=== PATIENT | female | born 2000 | race Caucasian/White ===

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

== ENCOUNTER 2024-05-02 19:33 | Inpatient (IN) | payer SELFPAY ==
--- NOTE | 2024-05-02 19:41 | ED_ITS ---
<Statement entered by Rui Cole MD - 05/02/24 23:03> I was consulted by the HENRI, and we discussed the complexity of the problems being addressed. I approved the treatment and management plan for this patient's care in the emergency department, thus performing a substantive portion of the medical decision making. Rui Cole MD, ELIZABET, FACEP Discharge Plan Disposition Patient Disposition: Admitted Condition: Fair Clinical Impressions Clinical Impression: Transaminitis Acute pancreatitis Qualifiers: Pancreatitis type: other Acute pancreatitis complication: unspecified Qualified Code(s): K85.80 - Other acute pancreatitis without necrosis or infection Discharge ED Provider: Rui Cole General Adult HPI <RAJENDRA Dukes - Last Filed: 05/02/24 22:32> General Chief complaint: Abdominal Pain Stated complaint: abd pain, vomiting Time Seen by Provider: 05/02/24 19:40 History of Present Illness HPI narrative: Patient presents for evaluation of epigastric abdominal pain. Patient states that she was awoken from sleep with epigastric abdominal pain. This is not her first episode of this and has been happening for quite some time. She denies shortness of breath fever chills hemoptysis hematochezia melena nausea vomiting diarrhea. Patient states that she has not had a bowel movement in some time . She denies alcohol or illicit or street drug use. Patient still has her gallbladder. Related Data Allergies Allergy/AdvReac Type Severity Reaction Status Date / Time Penicillins [PENICILLINS] Allergy Unknown I-HIVES Verified 11/23/17 15:39 PFSH <RAJENDRA Dukes - Last Filed: 05/02/24 22:32> [facility] Disclaimer: The information contained in this section may have been updated after the patient was seen, as this information can be updated by other users. Social History (Updated 05/02/24 @ 22:32 by RAJENDRA Dukes) Smoking Status: Unknown if ever smoked alcohol intake: never current occupational status: employed Travel in the last 8 weeks: None <RAJENDRA Dukes - Last Filed: 05/02/24 22:32> ROS Obtained: Yes Systems reviewed as appropriate & no additional complaints except as documented Physical Exam <RAJENDRA Dukes - Last Filed: 05/02/24 22:32> General General appearance: alert and in no apparent distress Respiratory Respiratory exam: Present normal lung sounds bilaterally Cardiovascular Cardiovascular exam: Present regular rate and normal rhythm Abdominal Exam Abdominal exam: Present soft, tenderness (Tender to palpation in the epigastrium without rebound or guarding rigidity.) and normal bowel sounds; Absent guarding, rebound or rigidity Back Exam Back exam: Present normal inspection and full ROM; Absent tenderness Neurological Exam Neurological exam: Present alert and oriented X3 Medical Decision Making <RAJENDRA Dukes - Last Filed: 05/02/24 22:32> Medical Records Medical records reviewed: Yes I reviewed the patient's medical records. Telly Inquiry Pt receiving controlled substance: No Vital Signs: 05/02/24 19:46 05/02/24 20:08 05/02/24 21:01 Temperature 98.1 F Temperature Source Oral Pulse Rate 46 L 56 L Pulse Rate [Right Brachial] 80 Respiratory Rate 16 Blood Pressure 143/99 H 171/104 H Blood Pressure [Right Arm] 142/71 H Blood Pressure Mean 120 126 Blood Pressure Mean [Right Arm] 94 Blood Pressure Source [Right Arm] Automatic Cuff 02 Sat by Pulse Oximetry 98 98 99 Oxygen Delivery Method Room Air 05/02/24 21:31 Temperature Temperature Source Pulse Rate 51 L Pulse Rate [Right Brachial] Respiratory Rate Blood Pressure 142/92 H Blood Pressure [Right Arm] Blood Pressure Mean 108 Blood Pressure Mean [Right Arm] Blood Pressure Source [Right Arm] 02 Sat by Pulse Oximetry 99 Oxygen Delivery Method Lab Data Lab results reviewed: Yes I reviewed the patient's lab results. Lab Results 05/02/24 19:40: Urine Color Yellow, Urine Appearance Clear, Urine pH 6.0, Ur Specific [place] 1.010, Urine Protein 1+, Urine Glucose (UA) Trace, Urine Ketones Negative, Urine Blood Negative, Urine Nitrate Negative, Urine Bilirubin 1+ A, Urine Urobilinogen >=8.0, Ur Leukocyte Esterase 2+ A, Urine RBC None, Urine WBC 3-5, Ur Squamous Epith Cells 10-20, Urine Bacteria 2+ 05/02/24 20:05: WBC 10.7, RBC 5.22, Hgb 14.7, Hct 44.5, MCV 85.2, MCH 28.2, MCHC 33.0, RDW 14.1, Plt Count 259, MPV 8.6, Neut % (Auto) 85.1 H, Lymph % (Auto) 8.4 L, [place] % (Auto) 4.3, Eos % (Auto) 1.6, Baso % (Auto) 0.5, Neut # (Auto) 9.1 H, Lymph # (Auto) 0.9, [place] # (Auto) 0.5, Eos # (Auto) 0.2, Baso # (Auto) 0.1, Total Counted 100, Neutrophils % (Manual) 84 H, Lymphocytes % (Manual) 10, Monocytes % (Manual) 3, Eosinophils % (Manual) 3, Platelet Estimate Normal, RBC Morphology Normal, Sodium 142, Potassium 4.4, Chloride 102, Carbon Dioxide 31 H, Anion Gap 13.4, BUN 11, Creatinine 0.80, Estimated Creat Clear 197, Estimated GFR 90, Est GFR ( Amer) 109, Glucose 109 H, Lactate 1.2, Calcium 10.2, Magnesium 2.1, Total Bilirubin 1.1, AST 375 H*, ALT 217 H, Alkaline Phosphatase 108, Troponin I < 0.01, Total Protein 9.0 H, Albumin 4.5, Globulin 4.5 H, A lbumin/Globulin Ratio 1.0 L, Triglycerides 118, Cholesterol 225 H, LDL Cholesterol Direct 131.61 H, VLDL Cholesterol 24, HDL Cholesterol 52, C holesterol/HDL Ratio 4.3 H, Lipase 46681 H, Serum HCG, Qual Negative 05/02/24 20:05 05/02/24 20:05 Orders (Tests/Meds): ED MEDICATIONS Generic Name Dose Route Start Last Admin Trade Name Freq PRN Reason Stop Dose Admin Acetaminophen 650 mg 05/02/24 22:24 Acetaminophen 325mg Tab PO 06/01/24 22:23 Q4HP PRN Fever or Mild Pain (1-3) Enoxaparin Sodium 40 mg 05/03/24 09:00 Enoxaparin 40mg/0.4ml Syringe SQ 06/02/24 08:59 DAILY IVONNE Lactated Ringer's 1,000 mls @ 125 mls/hr 05/02/24 22:30 Lactated Ringer's 1000 Ml Bag IV 06/01/24 22:29 .Q8H IVONNE Morphine Sulfate 2 mg 05/02/24 22:24 Morphine 2mg/Ml Syringe IV 06/01/24 22:23 Q2HP PRN Severe Pain (7-10) Nicotine 21 mg 05/02/24 22:24 Nicotine 21mg/24hr Patch TD 06/01/24 22:23 DAILYP PRN Nicotine Cravings Ondansetron HCl 4 mg 05/02/24 22:24 Ondansetron 4mg/2ml Vial IV 06/01/24 22:23 Q8HP PRN Nausea Pantoprazole Sodium 40 mg 05/03/24 21:00 Pantoprazole 40mg Vial IV 06/02/24 20:59 HS IVONNE Sodium Chloride 10 ml 05/02/24 20:55 05/02/24 20:56 Sodium Chloride 0.9% 10ml Syr (Rad Only) IV 06/01/24 20:54 10 ml NEEDED PRN Administration Maintain IV Site Discontinued Medications Generic Name Dose Route Start Last Admin Trade Name Freq PRN Reason Stop Dose Admin Acetaminophen 1,000 mg 05/02/24 20:02 05/02/24 20:27 Acetaminophen 1,000mg/100ml Vial IV 05/02/24 20:03 1,000 mg ONCE ONE Administration Belladonna Alkaloids 60 ml 05/02/24 20:02 05/02/24 20:28 Belladonna Alkaloids 60 Ml Ml PO 05/02/24 20:03 60 ml ONCE ONE Administration Lactated Ringer's 1,000 mls @ 999 mls/hr 05/02/24 20:02 05/02/24 20:27 Lactated Ringer's 1000 Ml Bag IV 05/02/24 21:02 999 mls/hr .Q1H1M ONE Administration Iopamidol 75 ml 05/02/24 20:55 05/02/24 20:56 Iopamidol-370 (76%);100ml Bottle IV 05/02/24 20:56 75 ml ONCE ONE Administration Ketorolac Tromethamine 15 mg 05/02/24 20:02 05/02/24 20:58 Ketorolac 30mg/Ml Vial IV 05/02/24 20:03 15 mg ONCE ONE Administration Ondansetron HCl 4 mg 05/02/24 20:02 05/02/24 20:27 Ondansetron 4mg/2ml Vial IV 05/02/24 20:03 4 mg ONCE ONE Administration ORDERS Category Date Time Status CT abdomen pelvis w con Stat Cat Scan 05/02/24 20:02 Completed Chest XR -- portable [XR chest portable] Stat Exams 05/02/24 20:02 Completed POCUS Point of Care (ER Only) Stat Exams 05/02/24 20:49 Taken US pancreas Stat Exams 05/02/24 22:24 Ordered CBC w/Auto Diff [Complete Blood Count Auto Diff] Stat Lab 05/02/24 20:05 Completed CMP [Comprehensive Metabolic Panel] Stat Lab 05/02/24 20:05 Completed Complete Blood Count Auto Diff AMLAB Lab 05/03/24 06:00 Ordered Comprehensive Metabolic Panel AMLAB Lab 05/03/24 06:00 Ordered HCG Qualitative, Serum Stat Lab 05/02/24 20:05 Completed Hepatitis Panel Routine Lab 05/02/24 21:07 Received Lactic Acid Stat Lab 05/02/24 20:05 Completed Lipase Stat Lab 05/02/24 20:05 Completed Lipid Panel Stat Lab 05/02/24 20:05 Completed Magnesium AMLAB Lab 05/03/24 06:00 Ordered Magnesium Stat Lab 05/02/24 20:05 Completed Trop I [Troponin I] Stat Lab 05/02/24 20:05 Completed Troponin I Q3H Lab 05/02/24 23:15 Ordered Troponin I Q3H Lab 05/03/24 02:15 Ordered UA [Urinalysis and Microscopic] Stat Lab 05/02/24 19:40 Completed Urine Culture Stat Micro 05/02/24 19:40 Received Medical Decision Narrative: In summary patient is a 21-year-old female who presents to the emergency department for evaluation of gastric abdominal pain. Patient is hemodynamically stable upon arrival, afebrile. Physical exam is remarkable for epigastric abdominal pain to palpation without rebound guarding or rigidity. Bowel sounds are normal active.. Differential diagnosis includes GERD versus ulcer disease versus esophagitis versus cholecystitis versus pancreatitis versus bowel obstruction versus ACS etc. Initial workup will be conducted with hematologic labs urinalysis CT scan abdomen pelvis with contrast. Initial interventions include crystalloid bolus Toradol Decadron acetaminophen GI cocktail. Initial workup reviewed by me shows her hematologic labs are significant for normal white count with an absolute neutrophil count of 9.1, and AST of 375 and ALT of 217 and alk phos of 108 and bilirubin of 1.1 and negative troponin urinalysis positive for 3-5 white cells 10-20 squamous epithelial cells and 2+ bacteria indicating contamination and my informal interpretation of her CT scan abdomen pelvis shows acute pancreatitis. Upon repeat evaluation did have some improvement in her symptoms after initial intervention but not the GI cocktail.. Given this I had interactive discussion with hospital medicine who plans to admit for further evaluation and care <Rui Cole MD - Last Filed: 05/02/24 23:05> Vital Signs: 05/02/24 19:46 05/02/24 20:08 05/02/24 21:01 Temperature 98.1 F Temperature Source Oral Pulse Rate 46 L 56 L Pulse Rate [Right Brachial] 80 Respiratory Rate 16 Blood Pressure 143/99 H 171/104 H Blood Pressure [Right Arm] 142/71 H Blood Pressure Mean 120 126 Blood Pressure Mean [Right Arm] 94 Blood Pressure Source [Right Arm] Automatic Cuff 02 Sat by Pulse Oximetry 98 98 99 Oxygen Delivery Method Room Air 05/02/24 21:31 Temperature Temperature Source Pulse Rate 51 L Pulse Rate [Right Brachial] Respiratory Rate Blood Pressure 142/92 H Blood Pressure [Right Arm] Blood Pressure Mean 108 Blood Pressure Mean [Right Arm] Blood Pressure Source [Right Arm] 02 Sat by Pulse Oximetry 99 Oxygen Delivery Method Lab Data Lab results reviewed: Yes I reviewed the patient's lab results. Lab Results 05/02/24 19:40: Urine Color Yellow, Urine Appearance Clear, Urine pH 6.0, Ur Specific [place] 1.010, Urine Protein 1+, Urine Glucose (UA) Trace, Urine Ketones Negative, Urine Blood Negative, Urine Nitrate Negative, Urine Bilirubin 1+ A, Urine Urobilinogen >=8.0, Ur Leukocyte Esterase 2+ A, Urine RBC None, Urine WBC 3-5, Ur Squamous Epith Cells 10-20, Urine Bacteria 2+ 05/02/24 20:05: WBC 10.7, RBC 5.22, Hgb 14.7, Hct 44.5, MCV 85.2, MCH 28.2, MCHC 33.0, RDW 14.1, Plt Count 259, MPV 8.6, Neut % (Auto) 85.1 H, Lymph % (Auto) 8.4 L, [place] % (Auto) 4.3, Eos % (Auto) 1.6, Baso % (Auto) 0.5, Neut # (Auto) 9.1 H, Lymph # (Auto) 0.9, [place] # (Auto) 0.5, Eos # (Auto) 0.2, Baso # (Auto) 0.1, Total Counted 100, Neutrophils % (Manual) 84 H, Lymphocytes % (Manual) 10, Monocytes % (Manual) 3, Eosinophils % (Manual) 3, Platelet Estimate Normal, RBC Morphology Normal, Sodium 142, Potassium 4.4, Chloride 102, Carbon Dioxide 31 H, Anion Gap 13.4, BUN 11, Creatinine 0.80, Estimated Creat Clear 197, Estimated GFR 90, Est GFR ( Amer) 109, Glucose 109 H, Lactate 1.2, Calcium 10.2, Magnesium 2.1, Total Bilirubin 1.1, AST 375 H*, ALT 217 H, Alkaline Phosphatase 108, Troponin I < 0.01, Total Protein 9.0 H, Albumin 4.5, Globulin 4.5 H, A lbumin/Globulin Ratio 1.0 L, Triglycerides 118, Cholesterol 225 H, LDL Cholesterol Direct 131.61 H, VLDL Cholesterol 24, HDL Cholesterol 52, C holesterol/HDL Ratio 4.3 H, Lipase 83035 H, Serum HCG, Qual Negative Orders (Tests/Meds): ED MEDICATIONS Generic Name Dose Route Start Last Admin Trade Name Freq PRN Reason Stop Dose Admin Acetaminophen 650 mg 05/02/24 22:24 Acetaminophen 325mg Tab PO 06/01/24 22:23 Q4HP PRN Fever or Mild Pain (1-3) Enoxaparin Sodium 40 mg 05/03/24 09:00 Enoxaparin 40mg/0.4ml Syringe SQ 06/02/24 08:59 DAILY IVONNE Lactated Ringer's 1,000 mls @ 125 mls/hr 05/02/24 22:30 Lactated Ringer's 1000 Ml Bag IV 06/01/24 22:29 .Q8H IVONNE Morphine Sulfate 2 mg 05/02/24 22:24 Morphine 2mg/Ml Syringe IV 06/01/24 22:23 Q2HP PRN Severe Pain (7-10) Nicotine 21 mg 05/02/24 22:24 Nicotine 21mg/24hr Patch TD 06/01/24 22:23 DAILYP PRN Nicotine Cravings Ondansetron HCl 4 mg 05/02/24 22:24 Ondansetron 4mg/2ml Vial IV 06/01/24 22:23 Q8HP PRN Nausea Pantoprazole Sodium 40 mg 05/03/24 21:00 Pantoprazole 40mg Vial IV 06/02/24 20:59 HS IVONNE Sodium Chloride 10 ml 05/02/24 20:55 05/02/24 20:56 Sodium Chloride 0.9% 10ml Syr (Rad Only) IV 06/01/24 20:54 10 ml NEEDED PRN Administration Maintain IV Site Discontinued Medications Generic Name Dose Route Start Last Admin Trade Name Freq PRN Reason Stop Dose Admin Acetaminophen 1,000 mg 05/02/24 20:02 05/02/24 20:27 Acetaminophen 1,000mg/100ml Vial IV 05/02/24 20:03 1,000 mg ONCE ONE Administration Belladonna Alkaloids 60 ml 05/02/24 20:02 05/02/24 20:28 Belladonna Alkaloids 60 Ml Ml PO 05/02/24 20:03 60 ml ONCE ONE Administration Lactated Ringer's 1,000 mls @ 999 mls/hr 05/02/24 20:02 05/02/24 20:27 Lactated Ringer's 1000 Ml Bag IV 05/02/24 21:02 999 mls/hr .Q1H1M ONE Administration Iopamidol 75 ml 05/02/24 20:55 05/02/24 20:56 Iopamidol-370 (76%);100ml Bottle IV 05/02/24 20:56 75 ml ONCE ONE Administration Ketorolac Tromethamine 15 mg 05/02/24 20:02 05/02/24 20:58 Ketorolac 30mg/Ml Vial IV 05/02/24 20:03 15 mg ONCE ONE Administration Ondansetron HCl 4 mg 05/02/24 20:02 05/02/24 20:27 Ondansetron 4mg/2ml Vial IV 05/02/24 20:03 4 mg ONCE ONE Administration ORDERS Category Date Time Status CT abdomen pelvis w con Stat Cat Scan 05/02/24 20:02 Completed Chest XR -- portable [XR chest portable] Stat Exams 05/02/24 20:02 Completed POCUS Point of Care (ER Only) Stat Exams 05/02/24 20:49 Taken US pancreas Stat Exams 05/02/24 22:24 Ordered CBC w/Auto Diff [Complete Blood Count Auto Diff] Stat Lab 05/02/24 20:05 Completed CMP [Comprehensive Metabolic Panel] Stat Lab 05/02/24 20:05 Completed Complete Blood Count Auto Diff AMLAB Lab 05/03/24 06:00 Ordered Comprehensive Metabolic Panel AMLAB Lab 05/03/24 06:00 Ordered HCG Qualitative, Serum Stat Lab 05/02/24 20:05 Completed Hepatitis Panel Routine Lab 05/02/24 21:07 Received Lactic Acid Stat Lab 05/02/24 20:05 Completed Lipase Stat Lab 05/02/24 20:05 Completed Lipid Panel Stat Lab 05/02/24 20:05 Completed Magnesium AMLAB Lab 05/03/24 06:00 Ordered Magnesium Stat Lab 05/02/24 20:05 Completed Trop I [Troponin I] Stat Lab 05/02/24 20:05 Completed Troponin I Q3H Lab 05/02/24 23:15 Ordered Troponin I Q3H Lab 05/03/24 02:15 Ordered UA [Urinalysis and Microscopic] Stat Lab 05/02/24 19:40 Completed Urine Culture Stat Micro 05/02/24 19:40 Received Procedures <Rui Cole MD - Last Filed: 05/02/24 23:05> Miscellaneous Procedure Procedure Performed: Limited RUQ ultrasound Indication: Abdominal pain abnormal transaminases Identified structures: -Gallbladder -Gallbladder wall -Common bile duct -Liver Findings: Normal gallbladder normal anterior gallbladder wall thickness no pericholecystic fluid negative sonographic Ceron's no stones or sludge Common bile duct within normal limits Impression: Normal gallbladder and common bile duct Images were saved to permanent archive The study was technically adequate CPT 31994-36 This study was performed by me, and I personally interpreted all images/videos. Based on my clinical judgement, these images were adequate and did not necessitate further imaging. Critical Care <RAJENDRA Dukes - Last Filed: 05/02/24 22:32> Critical Care Time Critical Care Time: No
[2024-05-02 19:46] VITALS: BP 142/71; PULSE 80; RESP 16; TEMP 36.7; O2SAT 98; BMI 37.8
--- NOTE | 2024-05-02 20:02 | XR_ITS ---
PROCEDURE INFORMATION: Exam: XR Chest Exam date and time: 05/02/2024 8:34 PM Age: 23 years old Clinical indication: Other: Epigastric pain; Additional info: Epigastric abdominal pain TECHNIQUE: Imaging protocol: Radiologic exam of the chest. Views: 1 view. COMPARISON: No relevant prior studies available. FINDINGS: Lungs: Unremarkable. No consolidation. Pleural spaces: Unremarkable. No pleural effusion. No pneumothorax. Heart/Mediastinum: Unremarkable. No cardiomegaly. Bones/joints: Unremarkable. IMPRESSION: No acute findings.
--- NOTE | 2024-05-02 20:02 | CT_ITS ---
PROCEDURE INFORMATION: Exam: CT Abdomen And Pelvis With Contrast Exam date and time: 05/02/2024 8:44 PM Age: 23 years old Clinical indication: Abdominal pain; Epigastric; Additional info: Epigastric abdominal pain TECHNIQUE: Imaging protocol: Computed tomography of the abdomen and pelvis with contrast. Radiation optimization: All CT scans at this facility use at least one of these dose optimization techniques: automated exposure control; mA and/or kV adjustment per patient size (includes targeted exams where dose is matched to clinical indication); or iterative reconstruction. Contrast material: ISOVUE; Contrast volume: 75 ml; Contrast route: IV; COMPARISON: CR XR CHEST PORTABLE 05/02/2024 8:34 PM FINDINGS: Lungs: Calcified granuloma sub cm within the left lung. Liver: Mild diffuse hepatic steatosis is identified. Gallbladder and biliary ducts: The gallbladder is normal. There is no evidence of biliary ductal dilation. Pancreas: There is peripancreatic inflammatory changes involving the head, neck, uncinate and body of the pancreas consistent with acute pancreatitis. Spleen: The spleen is normal. Adrenal glands: The adrenal glands appear within normal limits. Kidneys and ureters: The kidneys are normal. Stomach and bowel: The stomach appears within normal limits. No wall thickening or inflammatory change. Appendix: No evidence of appendicitis. Intraperitoneal space: No free air. Vasculature: Unremarkable. No abdominal aortic aneurysm. Lymph nodes: Unremarkable. No enlarged lymph nodes. Urinary bladder: The bladder appears within normal limits. No wall thickening. Reproductive: The uterus and adnexal structures appear normal. Bones/joints: Unremarkable. No acute fracture. Soft tissues: The visualize subcutaneous soft tissues and abdominal wall and flank wall appear unremarkable. IMPRESSION: Changes of acute Pancreatitis without evidence for pancreatic necrosis.
[2024-05-02 20:08] VITALS: BP 143/99; PULSE 46; O2SAT 98
[2024-05-02 20:09] LABS: Microscopic, Urine URINE MICROSCOPIC (MICROSCOPIC)
[2024-05-02 20:19] LABS: Basophils # 0.1 K/mm3 (0-0.2); Basophils % 0.5 % (0.1-2.0); Eosinophils # 0.2 K/mm3 (0.0-0.4); Eosinophils % 1.6 % (0.1-12.0); Hematocrit 44.5 % (37.0-47.0); Hemoglobin 14.7 g/dL (12.2-16.2); Lymphocytes # 0.9 K/mm3 (0.7-4.5); Lymphocytes % 8.4 % (10-50); Mean Corpuscular Hemoglobin 28.2 pg (27.0-31.2); Mean Corpuscular Volume 85.2 fl (81-99); Mean Platelet Volume 8.6 fl (7.4-10.4); Monocytes # 0.5 K/mm3 (0.1-1.0); Monocytes % 4.3 % (1.7-9.3); Neutrophils # 9.1 K/mm3 (1.8-7.8); Neutrophils % 85.1 % (37.0-80.0); Platelet Count 259 K/mm3 (142-424); Red Blood Count 5.22 M/mm3 (4.20-5.40); Red Cell Distribution Width 14.1 % (11.5-17.5); White Blood Count 10.7 K/mm3 (4.8-10.8)
[2024-05-02 20:22] LABS: Appearance,Urine CLEAR (Clear); Blood, Urine Negative (Negative); Color,Urine YELLOW (Yellow); Glucose,Urine (UA) TRACE (Negative); Ketones,Urine Negative (Negative); Leukocyte Esterase,Urine 2+ (Negative); Nitrate,Urine Negative (Negative); Protein,Urine 1+ (Negative); Urobilinogen,Urine >=8.0 EU/dl (0.2)
[2024-05-02 20:22] LABS: MANUAL DIFFERENTIAL MANUAL DIFFERENTIAL (MANUAL DIFF)
[2024-05-02 20:27] LABS: Chloride 102 mmol/L (98-107)
[2024-05-02] MEDS: ACETAMINOPHEN 1,000MG/100ML VIAL 1000 MG IV (20:27)
[2024-05-02] MEDS: ONDANSETRON 4MG/2ML VIAL 4 MG IV (20:27)
[2024-05-02] MEDS: LACTATED RINGERS 1000ML 1,000 ML 999 ML IV (20:27)
[2024-05-02 20:28] LABS: Bilirubin,Urine 1+ (Negative)
[2024-05-02 20:28] LABS: Potassium 4.4 mmoL/L (3.5-5.1); Sodium 142 mmol/L (136-145)
[2024-05-02] MEDS: BELLADONNA ALKALOIDS 60 ML ML PO (20:28)
--- NOTE | 2024-05-02 20:28 | PC.NURSE ---
Pt vomited all of GI cocktail immediately after administration provider notified
[2024-05-02 20:30] LABS: Alanine Aminotransferase 217 U/L (12-78); Alkaline Phosphatase 108 U/L (38-126); Anion Gap 13.4 mEq/L (5-15); Aspartate Amino Transferase 375 U/L (14-36); Bilirubin,Total 1.1 mg/dl (0.2-1.3); Blood Urea Nitrogen 11 mg/dl (7-17); Calcium 10.2 mg/dl (8.4-10.2); Carbon Dioxide 31 mmol/L (22.0-30.0); Creatinine Clearance Estimated 197 mL/min (50-200); Estimated Glomerular Filt Rate 90 ml/min (>60); GFR (African American) 109 ML/MIN (>60); Glucose 109 mg/dl (74-100); Lactic Acid 1.2 mmol/L (0.7-2.1)
[2024-05-02 20:31] LABS: Albumin Level 4.5 g/dl (3.5-5.0); Globulin 4.5 g/dL (1.3-3.2); Magnesium 2.1 mg/dl (1.6-2.3)
[2024-05-02 20:33] LABS: HCG Qualitative, Serum Negative (Negative)
[2024-05-02 20:43] LABS: Troponin I < 0.01 ng/ml (0.00-0.034)
[2024-05-02 20:51] LABS: Bacteria,Urine 2+ /lpf
[2024-05-02] MEDS: IOPAMIDOL-370 (76%);100ML BOTTLE 75 ML IV (20:56)
[2024-05-02] MEDS: SODIUM CHLORIDE 0.9% 10ML SYR (RAD ONLY) 10 ML IV (20:56)
[2024-05-02] MEDS: KETOROLAC 30MG/ML VIAL 15 MG IV (20:58)
[2024-05-02 21:01] VITALS: BP 171/104; PULSE 56; O2SAT 99
--- NOTE | 2024-05-02 21:02 | ECG_ITS ---
APPROVED REPORT Exam: Resting ECG HR:55 bpm ECG Measurements Heart Rate 55 AXES FL 123 P -3 QRSd 96 QRS 68 QT 400 T 12 QTc 389 Conclusion SINUS BRADYCARDIA BORDERLINE ECG UNCONFIRMED REPORT Electronically signed by : Pedro Pablo Cole, 05/02/2024 23:09:54
[2024-05-02 21:20] LABS: Eosinophils % 3 % (0-3); Lymphocytes % 10 % (10-50); Monocytes % 3 % (2-9); Neutrophils % 84 % (42-76); Platelet Estimate Normal; RBC Morphology Normal; Total Cells Counted 100
[2024-05-02 21:31] VITALS: BP 142/92; PULSE 51; O2SAT 99
[2024-05-02 21:41] LABS: Chol/HDL Ratio 4.3 (1-3.5); Cholesterol 225 mg/dl (140-200); HDL Cholesterol 52 mg/dl (40-60); Triglycerides 118 mg/dl (30-150); VLDL Cholesterol 24 mg/dL (0-40)
[2024-05-02 21:52] LABS: Direct LDL Cholesterol 131.61 mg/dL (100-129)
--- NOTE | 2024-05-02 22:24 | EXP.HP ---
History of Present Illness *Admission Date: 05/02/24 *Reason for visit:: abdominal pain *History of present illness: This is a 23 yo obese female with no other significant PMHx of HTN induced, GERD, STD during , and social alcohol drinker patient presented for evaluation of epigastric abdominal pain. Patient states that she was awoken from sleep with epigastric abdominal pain. This is not her first episode of this and has been happening for two months. Currently patient is 8 months . Initially she was seen by her primary doctor many times, and was told that it was GERD related. Patient also reported sometimes associated nausea and vomiting. Currently she denies shortness of breath fever chills hemoptysis hematochezia melena nausea vomiting diarrhea. She denies alcohol or illicit or street drug use. Patient still has her gallbladder. Admitted for further management. [facility] Disclaimer: The information contained in this section may have been updated after the patient was seen, as this information can be updated by other users. Medical History (Updated 05/03/24 @ 06:59 by Rick Lake APRN) Deficient knowledge of caesarean delivery Hypertension affecting Surgical History (Updated 05/02/24 @ 23:27 by Salina Martinez RN) H/O wisdom tooth extraction History of tonsillectomy Social History (Updated 05/02/24 @ 22:32 by RAJENDRA Dukes) Smoking Status: Unknown if ever smoked alcohol intake: never current occupational status: employed Travel in the last 8 weeks: None Review of Systems Review of Systems Review of systems:: pertinent systems reviewed and negative unless documented below Meds Home Medications and Allergies Home Medications Medication Instructions Recorded Confirmed Type No Known Home Medications 05/03/24 05/03/24 History New Prescriptions to Start Prescriptions: Allergies Allergy/AdvReac Type Severity Reaction Status Date / Time Penicillins [PENICILLINS] Allergy Unknown I-HIVES Verified 11/23/17 15:39 Exam Data for Last 24 hours Vital signs and Labs for Last 24 Hours: Temp Pulse Resp BP Pulse Ox O2 Del Method 98.1 F 51 L 16 142/92 H 99 Room Air 05/02/24 19:46 05/02/24 21:31 05/02/24 19:46 05/02/24 21:31 05/02/24 21:31 05/02/24 19:46 Laboratory Results - last 24 hr 05/02/24 19:40: Urine Color Yellow, Urine Appearance Clear, Urine pH 6.0, Ur Specific [place] 1.010, Urine Protein 1+, Urine Glucose (UA) Trace, Urine Ketones Negative, Urine Blood Negative, Urine Nitrate Negative, Urine Bilirubin 1+ A, Urine Urobilinogen >=8.0, Ur Leukocyte Esterase 2+ A, Urine RBC None, Urine WBC 3-5, Ur Squamous Epith Cells 10-20, Urine Bacteria 2+ 05/02/24 20:05: WBC 10.7, RBC 5.22, Hgb 14.7, Hct 44.5, MCV 85.2, MCH 28.2, MCHC 33.0, RDW 14.1, Plt Count 259, MPV 8.6, Neut % (Auto) 85.1 H, Lymph % (Auto) 8.4 L, [place] % (Auto) 4.3, Eos % (Auto) 1.6, Baso % (Auto) 0.5, Neut # (Auto) 9.1 H, Lymph # (Auto) 0.9, [place] # (Auto) 0.5, Eos # (Auto) 0.2, Baso # (Auto) 0.1, Total Counted 100, Neutrophils % (Manual) 84 H, Lymphocytes % (Manual) 10, Monocytes % (Manual) 3, Eosinophils % (Manual) 3, Platelet Estimate Normal, RBC Morphology Normal, Sodium 142, Potassium 4.4, Chloride 102, Carbon Dioxide 31 H, Anion Gap 13.4, BUN 11, Creatinine 0.80, Estimated Creat Clear 197, Estimated GFR 90, Est GFR ( Amer) 109, Glucose 109 H, Lactate 1.2, Calcium 10.2, Magnesium 2.1, Total Bilirubin 1.1, AST 375 H*, ALT 217 H, Alkaline Phosphatase 108, Troponin I < 0.01, Total Protein 9.0 H, Albumin 4.5, Globulin 4.5 H, Albumin/Globulin Ratio 1.0 L, Triglycerides 118, Cholesterol 225 H, LDL Cholesterol Direct 131.61 H, VLDL Cholesterol 24, HDL Cholesterol 52, Cholesterol/HDL Ratio 4.3 H, Serum HCG, Qual Negative I & O for Last 24 hours: Intake & Output 04/29/24 04/30/24 05/01/24 05/02/24 23:59 23:59 23:59 23:59 Weight 112.945 kg Constitutional Constitutional: moderate distress, obese and cooperative *Routine HEENT Exam Head: Present normocephalic Eye: Present EOMI and PERRL ENT: Present mucous membranes moist *Routine Neck Exam Neck: Present supple; Absent lymphadenopathy *Routine Respiratory Exam Respiratory: Present CTA bilaterally, diminished air movement and symmetric chest movement; Absent respiratory distress *Routine Cardiovascular Exam Cardiovascular: Present RRR *Routine Abdominal Exam Abdominal: Present soft, normoactive bowel sounds, tenderness, guarding and organomegaly *Routine Rectal Exam Rectal:: deferred *Routine Genitalia Exam Genitalia:: deferred *Routine Extremities Exam Extremities: Absent cyanosis, clubbing or edema *Routine Skin Exam Skin: Present warm; Absent rash *Routine Neurological Exam Neurological: Present alert, oriented X3, normal reflexes and moving all extremities Routine Psychiatric Exam Psychiatric: Present anxious H&P: Result Imaging and Cardiology CT scan - abdomen: Status: image reviewed by me, Preliminary report and final report EKG: Status: image reviewed by me, Preliminary report and final report Chest x-ray: Status: image reviewed by me, Preliminary report and final report Assessment and Plan *Assessment and plan (1) Acute pancreatitis: Status: Acute Qualifiers: Acute pancreatitis complication: unspecified Pancreatitis type: other Qualified Code(s): K85.80 - Other acute pancreatitis without necrosis or infection Category: Medical Code(s): K85.90 - Acute pancreatitis without necrosis or infection, unspecified (2) Transaminitis: Status: Acute Category: Medical Code(s): R74.01 - Elevation of levels of liver transaminase levels (3) Hypercholesteremia: Status: Acute Category: Medical Code(s): E78.00 - Pure hypercholesterolemia, unspecified (4) Fatty (change of) liver, not elsewhere classified: Status: Acute Category: Medical Code(s): K76.0 - Fatty (change of) liver, not elsewhere classified (5) HTN (hypertension): Status: Acute Qualifiers: Hypertension type: unspecified Qualified Code(s): I10 - Essential (primary) hypertension Category: Medical Code(s): I10 - Essential (primary) hypertension (6) Obesity: Status: Acute Qualifiers: Body mass index: BMI 37.0-37.9 Obesity classification: adult class 2 (BMI 35 - 39.9) Obesity type: due to excess calories Serious obesity comorbidity presence: unspecified whether serious comorbidity present Qualified Code(s): E66.09 - Other obesity due to excess calories; Z68.37 - Body mass index [BMI] 37.0-37.9, adult Category: Medical Code(s): E66.9 - Obesity, unspecified Plan 23 yo obese female with no other significant PMHx of HTN induced, GERD, STD during , and social alcohol drinker patient presented for evaluation of epigastric abdominal pain. Patient states that she was awoken from sleep with epigastric abdominal pain. Patient arrived visible distress. Initial physical exam consistent with upper epigastric abdominal pain with tenderness and guarding. Initial investigation including hematologic labs that are significant for normal white count with an absolute neutrophil count of 9.1, and AST of 375 and ALT of 217 and alk phos of 108 and bilirubin of 1.1 and negative troponin. Lipase in the 47k. Imaging was reviewed with, consistent with acute pancreatitis, low suspicious of necrosis or infection. Limited bedside ultrasound does not show acute cholecystitis. Discussed with the ED for admission for inpatient management. I agree for it. Plan: -Acute pancreatitis from unknwon etiology Transaminitis, Steatosis hepatic Hypercholesterolemia Admit patient for inpatient management. Dispo MedSurg. Continues IV resuscitation. LR at 125 MLS per hour Upper quadrant ultrasound ordered. Initially bedside is a limited, patient does not have apparent obstructive cholelithiasis Pain management. Tylenol and morphine as needed N.p.o.. May advance diet to the clear liquid as tolerated Zofran for nausea and vomiting UA pending. uds positive for marijuana Hepatitis panel and HIV ordered. patient has a history of STD and herpes during Repeat labs in the morning. Low suspicion for necrosis or infection. We deferred the use of antibiotic for now Monitor for sepsis and deterioration symptoms - induced hypertension: Patient presents with a little hypertension. Currently not on any treatment Monitor for high blood pressure controlled admissions to establish baseline. Consider numerous pharmacological versus nonpharmacological treatment Obesity: Educated and encouraged to weight management. Lifestyle changes that will also help modify cholesterol, fatty liver and diminished recurrence of episode of pancreatitis Lovenox for DVT prophylaxis. On Protonix for GI bleed and GERD Full code Rounded on patient after nurse practitioner. Personally examined and interviewed patient. Agree with exam findings and care plan as documented.
--- NOTE | 2024-05-02 22:44 | PC.NURSE ---
contacted house for bed assignment; diagnosis acute pancreatitis.admit to hospitalist
[2024-05-02 22:51] LABS: Lipase 47796 U/L (23-300)
--- NOTE | 2024-05-02 22:54 | PC.NURSE ---
Nurse to nurse report given to Salina Martinez
[2024-05-02 23:06] VITALS: BP 144/78; PULSE 50; RESP 17; TEMP 36.8; O2SAT 97
--- NOTE | 2024-05-02 23:10 | PC.NURSE ---
pt arrived to floor at this time
[2024-05-02 23:17] VITALS: BP 133/81; PULSE 57; RESP 16; TEMP 36.9; O2SAT 98; BMI 37.1
[2024-05-02] MEDS: LACTATED RINGERS 1000ML 1,000 ML 125 ML IV (23:35)
[2024-05-02 23:54] LABS: Troponin I < 0.01 ng/ml (0.00-0.034)
--- NOTE | 2024-05-03 | US_ITS ---
FINAL REPORT CLINICAL HISTORY: .pancreatitis COMPARISON: none FINDINGS: Sonographic images of the right upper quadrant were obtained. The pancreas is obscured. There is mild fatty infiltration of the liver. There are echogenic nonshadowing foci in the gallbladder. It is uncertain if this represents polyps or sludge. No well-defined gallstones are identified. There is no evidence of biliary ductal dilatation.The common duct measures 5 mm. The portal vein is normal. Limited images of the right kidney are unremarkable. IMPRESSION: Pancreas is obscured. Possible polyps or sludge in the gallbladder. This could be further evaluated with follow-up ultrasound in 6 months. Mild fatty liver. Reviewed, Interpreted and Dictated by Andrew Darnell III, MD Transcribed by Mabel Osorio Authenticated and [facility]
[2024-05-03 00:26] LABS: Barbiturates Screen,Urine Negative ng/ml (<200); Benzodiazepines Screen,Urine Negative ng/ml (<200)
[2024-05-03 00:27] LABS: Amphetamine/Metha Screen,Urine Negative ng/ml (<1000)
[2024-05-03 00:28] LABS: Cocaine Screen,Urine Negative ng/ml (<300); Methadone Screen,Urine Negative ng/ml (<300)
[2024-05-03 00:29] LABS: Cannabinoid Screen,Urine Positive ng/ml (<50); Opiate Screen,Urine Negative ng/ml (<300)
[2024-05-03 00:30] LABS: Phencyclidine Screen,Urine Negative ng/ml (<25)
[2024-05-03 03:29] LABS: Troponin I < 0.01 ng/ml (0.00-0.034)
[2024-05-03 04:00] VITALS: BP 117/60; PULSE 50; RESP 16; TEMP 37.4; O2SAT 99; BMI 37.1
--- NOTE | 2024-05-03 04:58 | PC.NURSE ---
pt admitted for pancreatitis. ivf's infusing, npo for us of pancreas.
[2024-05-03] MEDS: MORPHINE 2MG/ML SYRINGE 2 MG IV (06:36)
[2024-05-03] MEDS: ONDANSETRON 4MG/2ML VIAL 4 MG IV (06:37)
[2024-05-03 07:09] LABS: Chloride 106 mmol/L (98-107); Sodium 141 mmol/L (136-145)
[2024-05-03 07:11] LABS: Blood Urea Nitrogen 10 mg/dl (7-17); Creatinine Clearance Estimated 194 mL/min (50-200); Estimated Glomerular Filt Rate 90 ml/min (>60); GFR (African American) 109 ML/MIN (>60)
[2024-05-03 07:12] LABS: Alanine Aminotransferase 199 U/L (12-78); Albumin Level 3.9 g/dl (3.5-5.0); Albumin/Globulin Ratio 1.1 (1.1-1.8); Alkaline Phosphatase 103 U/L (38-126); Aspartate Amino Transferase 156 U/L (14-36); Bilirubin,Total 0.5 mg/dl (0.2-1.3); Calcium 9.7 mg/dl (8.4-10.2); Carbon Dioxide 31 mmol/L (22.0-30.0); Globulin 3.4 g/dL (1.3-3.2); Glucose 88 mg/dl (74-100); Total Protein,Serum 7.3 g/dl (6.3-8.2)
[2024-05-03] MEDS: LACTATED RINGERS 1000ML 1,000 ML 125 ML IV ×3 (07:17→23:20)
[2024-05-03 07:19] LABS: Basophils % 0.5 % (0.1-2.0); Eosinophils # 0.2 K/mm3 (0.0-0.4); Mean Platelet Volume 8.9 fl (7.4-10.4)
[2024-05-03 07:29] LABS: Eosinophils % 2.7 % (0.1-12.0); Lymphocytes # 1.5 K/mm3 (0.7-4.5); Lymphocytes % 17.4 % (10-50); Mean Corpuscular HGB Conc 32.9 g/dL (31.8-35.4); Mean Corpuscular Hemoglobin 27.8 pg (27.0-31.2); Mean Corpuscular Volume 84.5 fl (81-99); Monocytes # 0.4 K/mm3 (0.1-1.0); Monocytes % 4.6 % (1.7-9.3); Neutrophils # 6.6 K/mm3 (1.8-7.8); Neutrophils % 74.8 % (37.0-80.0); Platelet Count 227 K/mm3 (142-424); Red Blood Count 4.73 M/mm3 (4.20-5.40); Red Cell Distribution Width 14.1 % (11.5-17.5); White Blood Count 8.8 K/mm3 (4.8-10.8)
[2024-05-03 07:32] LABS: Hemoglobin 13.1 g/dL (12.2-16.2)
[2024-05-03 07:56] VITALS: BP 120/61; PULSE 61; RESP 18; TEMP 37.1; O2SAT 99
--- NOTE | 2024-05-03 11:22 | P.PN_ITS ---
Subjective *Date: 05/03/24 *Time: 16:38 Interval history: Patient still having epigastric pain. No nausea or vomiting. Interested in starting p.o. fluids. Denies chest pain or shortness of breath. Hemodynamically stable. Afebrile. On room air. Blood pressure and heart rate normal. Medical Exam Vital signs and Labs for Last 24 Hours: Vital Signs Temp Pulse Pulse Resp BP BP Pulse Ox 05/03/24 10:43 05/03/24 08:19 05/03/24 08:00 05/03/24 07:56 98.8 F 61 18 120/61 99 05/03/24 07:00 05/03/24 05:00 05/03/24 04:00 99.3 F 50 L 16 117/60 99 05/03/24 03:00 05/03/24 01:00 05/02/24 23:17 98.4 F 57 L 16 133/81 98 05/02/24 23:06 98.2 F 50 L 17 144/78 H 05/02/24 21:31 51 L 142/92 H 99 05/02/24 21:01 56 L 171/104 H 99 05/02/24 20:08 46 L 143/99 H 98 05/02/24 19:46 98.1 F 80 16 142/71 H 98 O2 Del Method 05/03/24 10:43 Room Air 05/03/24 08:19 Room Air 05/03/24 08:00 Room Air 05/03/24 07:56 Room Air 05/03/24 07:00 Room Air 05/03/24 05:00 Room Air 05/03/24 04:00 Room Air 05/03/24 03:00 Room Air 05/03/24 01:00 Room Air 05/02/24 23:17 Room Air 05/02/24 23:06 Room Air 05/02/24 21:31 05/02/24 21:01 05/02/24 20:08 05/02/24 19:46 Room Air Intake and Output 05/02/24 05/03/24 05/03/24 23:59 07:59 15:59 Intake Total 937 / 937 0 / 937 Output Total 0 / 0 Balance 937 / 937 0 / 937 Intake: Intake, Oral Amount 0 / 0 Intake, Total IV Amount 937 / 937 Lactated Ringers 1000ML 1,000 937 / 937 ml @ 125 mls/hr IV .Q8H [facility] Rx# :[id number] Output: Output, Urine Amount 0 / 0 Other: Number of Unmeasured Voids 1 Weight 111.266 kg 111.266 kg Patient Weight 05/03/24 23:59 Weight 111.266 kg Laboratory Results - last 24 hr 05/02/24 19:40: Urine Color Yellow, Urine Appearance Clear, Urine pH 6.0, Ur Specific [place] 1.010, Urine Protein 1+, Urine Glucose (UA) Trace, Urine Ketones Negative, Urine Blood Negative, Urine Nitrate Negative, Urine Bilirubin 1+ A, Urine Urobilinogen >=8.0, Ur Leukocyte Esterase 2+ A, Urine RBC None, Urine WBC 3-5, Ur Squamous Epith Cells 10-20, Urine Bacteria 2+ 05/02/24 20:05: WBC 10.7, RBC 5.22, Hgb 14.7, Hct 44.5, MCV 85.2, MCH 28.2, MCHC 33.0, RDW 14.1, Plt Count 259, MPV 8.6, Neut % (Auto) 85.1 H, Lymph % (Auto) 8.4 L, [place] % (Auto) 4.3, Eos % (Auto) 1.6, Baso % (Auto) 0.5, Neut # (Auto) 9.1 H, Lymph # (Auto) 0.9, [place] # (Auto) 0.5, Eos # (Auto) 0.2, Baso # (Auto) 0.1, Total Counted 100, Neutrophils % (Manual) 84 H, Lymphocytes % (Manual) 10, Monocytes % (Manual) 3, Eosinophils % (Manual) 3, Platelet Estimate Normal, RBC Morphology Normal, Sodium 142, Potassium 4.4, Chloride 102, Carbon Dioxide 31 H, Anion Gap 13.4, BUN 11, Creatinine 0.80, Estimated Creat Clear 197, Estimated GFR 90, Est GFR ( Amer) 109, Glucose 109 H, Lactate 1.2, Calcium 10.2, Magnesium 2.1, Total Bilirubin 1.1, AST 375 H*, ALT 217 H, Alkaline Phosphatase 108, Troponin I < 0.01, Total Protein 9.0 H, Albumin 4.5, Globulin 4.5 H, Albumin/Globulin Ratio 1.0 L, Triglycerides 118, Cholesterol 225 H, LDL Cholesterol Direct 131.61 H, VLDL Cholesterol 24, HDL Cholesterol 52, Cholesterol/HDL Ratio 4.3 H, Lipase 50944 H, Serum HCG, Qual Negative 05/02/24 23:20: Troponin I < 0.01, Urine Opiates Screen Negative, Urine Methadone Screen Negative, Ur Barbituates Screen Negative, Ur Phencyclidine Scrn Negative, Ur Amphetamines Screen Negative, U Benzodiazepines Scrn Negative, Urine Cocaine Screen Negative, U Marijuana (THC) Screen Positive H 05/03/24 03:05: Troponin I < 0.01 05/03/24 06:28: WBC 8.8, RBC 4.73, Hgb 13.1 D, Hct 40.0, MCV 84.5, MCH 27.8, M CHC 32.9, RDW 14.1, Plt Count 227, MPV 8.9, Neut % (Auto) 74.8, Lymph % (Auto) 17.4, [place] % (Auto) 4.6, Eos % (Auto) 2.7, Baso % (Auto) 0.5, Neut # (Auto) 6.6, Lymph # (Auto) 1.5, [place] # (Auto) 0.4, Eos # (Auto) 0.2, Baso # (Auto) 0.0, Sodium 141, Potassium 4.0, Chloride 106, Carbon Dioxide 31 H, Anion Gap 8.0, BUN 10, Creatinine 0.80, Estimated Creat Clear 194, Estimated GFR 90, Est GFR ( Amer) 109, Glucose 88, Calcium 9.7, Magnesium 2.0, Total Bilirubin 0.5, AST 156 H D, ALT 199 H, Alkaline Phosphatase 103, Total Protein 7.3, Albumin 3.9 D, Globulin 3.4 H, Albumin/Globulin Ratio 1.1 I & O for Labs for Last 24 Hours: Intake & Output 04/30/24 05/01/24 05/02/24 05/03/24 23:59 23:59 23:59 23:59 Intake Total 937 / 937 Output Total 0 / 0 Balance 937 / 937 Weight 111.266 kg 111.266 kg Constitutional: Present no acute distress and obese Head: Present atraumatic and normocephalic ENT: Present normal exam Neck: Present normal inspection Respiratory: Present normal respiratory effort; Absent rhonchi, wheezes or crackles Cardiac: Present Reg Rate and Rhythm GI: Present soft, tenderness (Epigastric and left upper quadrant) and normal bowel sounds; Absent distention, guarding or rebound Extremities: Present normal inspection and full ROM Skin: Present intact; Absent erythema Neuro: Present Grossly Intact, alert, awake, oriented x 3 and moves all extremities Assessment and Plan *Assessment and plan (1) Acute pancreatitis: Status: Acute Qualifiers: Acute pancreatitis complication: unspecified Pancreatitis type: other Qualified Code(s): K85.80 - Other acute pancreatitis without necrosis or infection Category: Medical Code(s): K85.90 - Acute pancreatitis without necrosis or infection, unspecified (2) Transaminitis: Status: Acute Category: Medical Code(s): R74.01 - Elevation of levels of liver transaminase levels (3) Hypercholesteremia: Status: Acute Category: Medical Code(s): E78.00 - Pure hypercholesterolemia, unspecified (4) Fatty (change of) liver, not elsewhere classified: Status: Acute Category: Medical Code(s): K76.0 - Fatty (change of) liver, not elsewhere classified (5) HTN (hypertension): Status: Acute Qualifiers: Hypertension type: unspecified Qualified Code(s): I10 - Essential (primary) hypertension Category: Medical Code(s): I10 - Essential (primary) hypertension (6) Obesity: Status: Acute Qualifiers: Obesity type: due to excess calories Obesity classification: adult class 2 (BMI 35 - 39.9) Serious obesity comorbidity presence: unspecified whether serious comorbidity present Body mass index: BMI 37.0-37.9 Qualified Code(s): E66.09 - Other obesity due to excess calories; Z68.37 - Body mass index [BMI] 37.0-37.9, adult Category: Medical Code(s): E66.9 - Obesity, unspecified Plan 23 yo obese female with no other significant PMHx of HTN induced, GERD, STD during , and social alcohol drinker patient presented for evaluation of epigastric abdominal pain. Patient states that she was awoken from sleep with epigastric abdominal pain. Patient arrived visible distress. Initial physical exam consistent with upper epigastric abdominal pain with tenderness and guarding. Initial investigation including hematologic labs that are significant for normal white count with an absolute neutrophil count of 9.1, and AST of 375 and ALT of 217 and alk phos of 108 and bilirubin of 1.1 and negative troponin. Lipase of 47k. Imaging was reviewed with findings consistent with acute pancreatitis, low suspicious of necrosis or infection. Limited bedside ultrasound does not show acute cholecystitis. Discussed with the ED for admission for inpatient management. Medicine agreed to admit for further management. Still having pain this morning. Will advance diet. Continues to require inpatient management. Problems addressed as follows: -Acute pancreatitis Transaminitis, Steatosis hepatic Hypercholesterolemia Patient still having abdominal pain. Will advance diet to clears today however and monitor for tolerance. Continues IV resuscitation. LR at 125 MLS per hour Upper quadrant ultrasound obtained, per my review questionable sludge in the gallbladder. Do not appreciate any biliary dilatation. Formal read recommends repeat ultrasound in 6 months, possible polyp Morphine 2 mg every 2 hours as needed, required 1 dose IV this morning. Zofran for nausea and vomiting UA pending. uds positive for marijuana Hepatitis panel and HIV ordered. patient has a history of STD and herpes during I ordered CBC, CMP, magnesium and repeat lipase for the morning. - induced hypertension: Blood pressure normal, 114/50. Continue to monitor. Obesity: Complicates all aspects of her care. Lovenox for DVT prophylaxis Protonix for GI bleed and GERD Full code Clear liquid diet
[2024-05-03 11:33] LABS: HIV (1&2) Antibody Rapid NON REACTIVE
--- NOTE | 2024-05-03 15:22 | PC.NURSE ---
Aox4, up as tolerated, no c/o of pain today, 20g L AC with LR @ 125 ml/hr.
[2024-05-03 15:49] VITALS: BP 114/50; PULSE 71; RESP 16; TEMP 36.7; O2SAT 97
[2024-05-03 19:46] VITALS: BP 106/52; PULSE 66; RESP 16; TEMP 36.9; O2SAT 98
[2024-05-03 20:00] VITALS: PULSE 66; RESP 16; O2SAT 98
[2024-05-03] MEDS: SODIUM CHLORIDE 0.9% 10ML VIAL 10 ML IV (20:58)
[2024-05-03] MEDS: PANTOPRAZOLE 40MG VIAL 40 MG IV (20:58)
[2024-05-04 04:00] VITALS: BP 111/60; PULSE 74; RESP 16; TEMP 36.7; O2SAT 96; BMI 37.1
[2024-05-04] MEDS: LACTATED RINGERS 1000ML 1,000 ML 125 ML IV (06:04)
--- NOTE | 2024-05-04 06:32 | PC.NURSE ---
Patient is alert and oriented x4. Patient stated she has continued to have epigastric pain, but has refused any pain medication during this shift. She has not reported any increases in her pain nor had any further requests at this time. She has rested quite well throughout the night. Her abdomen is soft but tender. Striae was noted on her abdomen upon inspection. Her bowel sounds were hypoactive in all quadrants. She had some subtle swelling in both of her ankles. Patient tolerates room air well. She has also been tolerating her clear liquid diet; she has not had any complaints of nausea or vomiting this shift as well. Her visitor has remained at bedside with her through the night. Patient is currently sleeping at this time. She is receiving a fresh bag of LR (125 mL/hr). No acute changes are noted.
[2024-05-04 07:13] LABS: HBsAg Screen Negative (Negative); HCV Ab Non Reactive (Non Reactive); Hep A Ab, IGM Negative (Negative); Hep B Core Ab, IgM Negative (Negative)
[2024-05-04 08:00] VITALS: BP 129/59; PULSE 75; RESP 20; TEMP 36.8; O2SAT 97
--- NOTE | 2024-05-04 09:03 | P.PN_ITS ---
Subjective *Date: 05/04/24 *Time: 18:30 Interval history: Patient doing well this morning. Denies significant pain. Tolerated clear liquids without incident. Afebrile. On room air. No nausea or vomiting. Medical Exam Vital signs and Labs for Last 24 Hours: Vital Signs Temp Pulse Resp BP Pulse Ox O2 Del Method 05/04/24 08:00 98.2 F 75 20 129/59 L 97 Room Air 05/04/24 07:31 Room Air 05/04/24 07:24 Room Air 05/04/24 07:00 Room Air 05/04/24 04:54 Room Air 05/04/24 04:00 98.1 F 74 16 111/60 96 Room Air 05/04/24 03:00 Room Air 05/04/24 01:00 Room Air 05/03/24 23:00 Room Air 05/03/24 21:00 Room Air 05/03/24 20:00 66 16 98 Room Air 05/03/24 19:46 98.5 F 66 16 106/52 L 98 Room Air 05/03/24 17:56 Room Air 05/03/24 16:53 Room Air 05/03/24 15:49 98.1 F 71 16 114/50 L 97 Room Air 05/03/24 14:58 Room Air 05/03/24 13:00 Room Air 05/03/24 10:43 Room Air Intake and Output 05/03/24 05/04/24 05/04/24 23:59 07:59 15:59 Intake Total 1056 / 1411 355 / 1411 Output Total 0 / 0 0 / 0 Balance 0 / 2993 1056 / 1411 355 / 1411 Intake: Intake, Oral Amount 355 / 355 Intake, Total IV Amount 1056 / 1056 Lactated Ringers 1000ML 1,000 1056 / 1056 ml @ 125 mls/hr IV .Q8H [facility], [facility] Rx# :[id number] Output: Output, Urine Amount 0 / 0 0 / 0 Other: Number of Unmeasured Voids 1 1 Weight 111.266 kg Patient Weight 05/04/24 23:59 Weight 111.266 kg Laboratory Results - last 24 hr 05/02/24 21:07: Hepatitis A IgM Ab Negative, Hep Bs Antigen Negative, Hep B Core IgM Ab Negative, Hepatitis C Antibody Non reactive 05/03/24 06:28: HIV 1&2 Antibody Rapid Non reactive I & O for Labs for Last 24 Hours: Intake & Output 05/01/24 05/02/24 05/03/24 05/04/24 23:59 23:59 23:59 23:59 Intake Total 1936 Output Total 0 / 0 0 / 0 Balance 1936 Weight 111.266 kg 111.266 kg 111.266 kg Constitutional: Present no acute distress and obese Head: Present atraumatic and normocephalic ENT: Present normal exam Neck: Present normal inspection Respiratory: Present normal respiratory effort; Absent rhonchi, wheezes or crackles Cardiac: Present Reg Rate and Rhythm GI: Present soft, tenderness (Epigastric and left upper quadrant, interval improvement from yesterday.) and normal bowel sounds; Absent distention, guarding or rebound Extremities: Present normal inspection and full ROM Skin: Present intact; Absent erythema Neuro: Present Grossly Intact, alert, awake, oriented x 3 and moves all extremities Assessment and Plan *Assessment and plan (1) Acute pancreatitis: Status: Acute Qualifiers: Acute pancreatitis complication: unspecified Pancreatitis type: other Qualified Code(s): K85.80 - Other acute pancreatitis without necrosis or infection Category: Medical Code(s): K85.90 - Acute pancreatitis without necrosis or infection, unspecified (2) Transaminitis: Status: Acute Category: Medical Code(s): R74.01 - Elevation of levels of liver transaminase levels (3) Hypercholesteremia: Status: Acute Category: Medical Code(s): E78.00 - Pure hypercholesterolemia, unspecified (4) Fatty (change of) liver, not elsewhere classified: Status: Acute Category: Medical Code(s): K76.0 - Fatty (change of) liver, not elsewhere classified (5) HTN (hypertension): Status: Acute Qualifiers: Hypertension type: unspecified Qualified Code(s): I10 - Essential (primary) hypertension Category: Medical Code(s): I10 - Essential (primary) hypertension (6) Obesity: Status: Acute Qualifiers: Body mass index: BMI 37.0-37.9 Obesity classification: adult class 2 (BMI 35 - 39.9) Obesity type: due to excess calories Serious obesity comorbidity presence: unspecified whether serious comorbidity present Qualified Code(s): E66.09 - Other obesity due to excess calories; Z68.37 - Body mass index [BMI] 37.0-37.9, adult Category: Medical Code(s): E66.9 - Obesity, unspecified Plan 23 yo obese female with no other significant PMHx of HTN induced, GERD, STD during , and social alcohol drinker patient presented for evaluation of epigastric abdominal pain. Patient states that she was awoken from sleep with epigastric abdominal pain. Patient arrived visible distress. Initial physical exam consistent with upper epigastric abdominal pain with tenderness and guarding. Initial investigation including hematologic labs that are significant for normal white count with an absolute neutrophil count of 9.1, and AST of 375 and ALT of 217 and alk phos of 108 and bilirubin of 1.1 and negative troponin. Lipase of 47k. Imaging was reviewed with findings consistent with acute pancreatitis, low suspicious of necrosis or infection. Limited bedside ultrasound does not show acute cholecystitis. Discussed with the ED for admission for inpatient management. Medicine agreed to admit for further management. Ultrasound yesterday showed gallbladder sludge. Will obtain MRI today, advance diet. If does well, anticipate discharge in the coming days. Continues to require inpatient management. Problems addressed as follows: -Acute pancreatitis Transaminitis, Steatosis hepatic Hypercholesterolemia Gallbladder sludge Patient still having abdominal pain, not worse with eating. Will advance diet to full liquid diet today however and monitor for tolerance. DC IV fluids MRCP ordered for today, given finding on upper quadrant ultrasound with sludge in the gallbladder, will evaluate for any intraductal blockage/obstruction. Will need referral as an outpatient to surgery for possible cholecystectomy. DC morphine, has not needed in 24 hours Zofran for nausea and vomiting Hepatitis panel negative. HIV nonreactive. Liver enzymes improved with bilirubin 0.4, AST 41, ALT 105. Lipase drastically improved at 435. White cell count normal at 8, hemoglobin 12. Decreased from 13.1. I ordered CBC, CMP, magnesium for the morning. - induced hypertension: Blood pressure normal, 129/59. Continue to monitor. Obesity: Complicates all aspects of her care. Lovenox for DVT prophylaxis Protonix for GI bleed and GERD Full code If tolerates full liquid diet at lunch, will advance to bland for tonight. Full liquid diet
[2024-05-04 11:50] LABS: Basophils # 0.1 K/mm3 (0-0.2); Basophils % 1.1 % (0.1-2.0); Eosinophils # 0.6 K/mm3 (0.0-0.4); Eosinophils % 7.1 % (0.1-12.0); Hematocrit 35.9 % (37.0-47.0); Lymphocytes # 1.8 K/mm3 (0.7-4.5); Lymphocytes % 22.7 % (10-50); Mean Corpuscular HGB Conc 33.6 g/dL (31.8-35.4); Mean Corpuscular Hemoglobin 28.1 pg (27.0-31.2); Mean Corpuscular Volume 83.8 fl (81-99); Mean Platelet Volume 8.9 fl (7.4-10.4); Monocytes # 0.5 K/mm3 (0.1-1.0); Monocytes % 6.2 % (1.7-9.3); Neutrophils % 62.9 % (37.0-80.0); Platelet Count 214 K/mm3 (142-424); Red Blood Count 4.29 M/mm3 (4.20-5.40); Red Cell Distribution Width 14.1 % (11.5-17.5)
[2024-05-04 11:58] LABS: Chloride 105 mmol/L (98-107); Potassium 3.6 mmoL/L (3.5-5.1); Sodium 138 mmol/L (136-145)
[2024-05-04 12:00] LABS: Alanine Aminotransferase 105 U/L (12-78); Aspartate Amino Transferase 41 U/L (14-36); Blood Urea Nitrogen 6 mg/dl (7-17); Creatinine Clearance Estimated 221 mL/min (50-200); Estimated Glomerular Filt Rate 105 ml/min (>60); GFR (African American) 127 ML/MIN (>60)
[2024-05-04 12:01] LABS: Albumin Level 3.6 g/dl (3.5-5.0); Albumin/Globulin Ratio 1.1 (1.1-1.8); Alkaline Phosphatase 73 U/L (38-126); Anion Gap 6.6 mEq/L (5-15); Bilirubin,Total 0.4 mg/dl (0.2-1.3); Calcium 9.3 mg/dl (8.4-10.2); Carbon Dioxide 30 mmol/L (22.0-30.0); Globulin 3.2 g/dL (1.3-3.2); Glucose 102 mg/dl (74-100); Magnesium 1.9 mg/dl (1.6-2.3); Total Protein,Serum 6.8 g/dl (6.3-8.2)
[2024-05-04 12:19] LABS: Lipase 435 U/L (23-300)
--- NOTE | 2024-05-04 13:39 | MR_ITS ---
FINAL REPORT CLINICAL HISTORY: EVAL GALLBLADDER/BILIARY TREE, MRCP COMPARISON: Right upper quadrant ultrasound and CT abdomen and pelvis dated 05/02/2024 FINDINGS: Multiplanar MR imaging of the abdomen was performed without contrast. An MRCP was also performed and 3D images were obtained and reviewed. Images are somewhat degraded by patient motion. Images of the liver reveal no evidence of mass. There are multiple rounded filling defects seen in the fundus of the gallbladder on series 7 images 19 through 20. These likely represent multiple gallstones. Tumefactive sludge could have a similar appearance. There is no evidence of biliary ductal dilatation. There is no evidence of a bile duct stone or stricture. The pancreatic duct is not well-visualized but is normal where seen. There is fluid surrounding the pancreas and duodenum consistent with the history of pancreatitis. No other mass or adenopathy is identified. IMPRESSION: Images somewhat degraded by motion. Filling defects in the fundus of the gallbladder likely represent multiple gallstones. Tumefactive sludge could have a similar appearance. No evidence of biliary ductal dilatation, bile duct stone, or stricture. Fluid surrounding the pancreas and duodenum consistent with the patient's history of pancreatitis. Reviewed, Interpreted and Dictated by Andrew Darnell III, MD Transcribed by Vilma Rojas Authenticated and [facility]
[2024-05-04 16:00] VITALS: BP 121/65; PULSE 77; RESP 17; TEMP 36.8; O2SAT 100
[2024-05-04 20:00] VITALS: BP 132/69; PULSE 87; RESP 18; TEMP 37; O2SAT 98
[2024-05-04] MEDS: PANTOPRAZOLE 40MG VIAL 40 MG IV (22:09)
[2024-05-05 04:00] VITALS: BP 116/60; PULSE 60; RESP 16; TEMP 36.8; O2SAT 93; BMI 37.9
--- NOTE | 2024-05-05 06:08 | PC.NURSE ---
no events overnight
[2024-05-05 06:19] LABS: Basophils # 0.1 K/mm3 (0-0.2); Basophils % 0.8 % (0.1-2.0); Eosinophils # 0.5 K/mm3 (0.0-0.4); Eosinophils % 5.7 % (0.1-12.0); Hematocrit 37.3 % (37.0-47.0); Hemoglobin 12.5 g/dL (12.2-16.2); Lymphocytes # 1.8 K/mm3 (0.7-4.5); Lymphocytes % 22.6 % (10-50); Mean Corpuscular HGB Conc 33.6 g/dL (31.8-35.4); Mean Corpuscular Hemoglobin 27.8 pg (27.0-31.2); Mean Corpuscular Volume 82.6 fl (81-99); Mean Platelet Volume 9.1 fl (7.4-10.4); Monocytes # 0.3 K/mm3 (0.1-1.0); Monocytes % 4.3 % (1.7-9.3); Neutrophils # 5.2 K/mm3 (1.8-7.8); Neutrophils % 66.6 % (37.0-80.0); Platelet Count 227 K/mm3 (142-424); Red Blood Count 4.51 M/mm3 (4.20-5.40); Red Cell Distribution Width 14.2 % (11.5-17.5); White Blood Count 7.8 K/mm3 (4.8-10.8)
[2024-05-05 06:24] LABS: Chloride 107 mmol/L (98-107)
[2024-05-05 06:25] LABS: Potassium 4.1 mmoL/L (3.5-5.1); Sodium 139 mmol/L (136-145)
[2024-05-05 06:27] LABS: Alanine Aminotransferase 81 U/L (12-78); Alkaline Phosphatase 86 U/L (38-126); Anion Gap 10.1 mEq/L (5-15); Aspartate Amino Transferase 28 U/L (14-36); Bilirubin,Total 0.4 mg/dl (0.2-1.3); Blood Urea Nitrogen 10 mg/dl (7-17); Carbon Dioxide 26 mmol/L (22.0-30.0); Creatinine Clearance Estimated 226 mL/min (50-200); Estimated Glomerular Filt Rate 105 ml/min (>60); GFR (African American) 127 ML/MIN (>60)
[2024-05-05 06:28] LABS: Albumin Level 3.9 g/dl (3.5-5.0); Albumin/Globulin Ratio 1.1 (1.1-1.8); Calcium 9.5 mg/dl (8.4-10.2); Globulin 3.5 g/dL (1.3-3.2); Glucose 104 mg/dl (74-100); Magnesium 1.9 mg/dl (1.6-2.3); Total Protein,Serum 7.4 g/dl (6.3-8.2)
--- NOTE | 2024-05-05 06:59 | EXP.DC.SUM ---
General Admission date:: 05/02/24 Discharge date: 05/05/24 HPI HPI HPI: This is a 23 yo obese female with no other significant PMHx of HTN induced, GERD, STD during , and social alcohol drinker patient presented for evaluation of epigastric abdominal pain. Patient states that she was awoken from sleep with epigastric abdominal pain. This is not her first episode of this and has been happening for two months. Currently patient is 8 months . Initially she was seen by her primary doctor many times, and was told that it was GERD related. Patient also reported sometimes associated nausea and vomiting. Currently she denies shortness of breath fever chills hemoptysis hematochezia melena nausea vomiting diarrhea. She denies alcohol or illicit or street drug use. Patient still has her gallbladder. Admitted for further management. Hospital Course Hospital Course Hospital Course: 23 yo obese female with no other significant PMHx of HTN induced, GERD, STD during , and social alcohol drinker patient presented for evaluation of epigastric abdominal pain. Patient states that she was awoken from sleep with epigastric abdominal pain. Patient arrived visible distress. Initial physical exam consistent with upper epigastric abdominal pain with tenderness and guarding. Initial investigation including hematologic labs that are significant for normal white count with an absolute neutrophil count of 9.1, and AST of 375 and ALT of 217 and alk phos of 108 and bilirubin of 1.1 and negative troponin. Lipase of 47k. Imaging was reviewed with findings consistent with acute pancreatitis, low suspicion of necrosis or infection. Admitted for medical management. Patient showed brisk response to advancement of diet. Significant improvement in symptoms during the course of her admission. Further imaging showed no obstruction with MRCP. Will plan for close follow-up with surgery to discuss removal of gallbladder. Stable to discharge home to gradually advance diet. Problems addressed as follows: Acute pancreatitis Transaminitis, Steatosis hepatic Hypercholesterolemia Gallbladder sludge Patient admitted with abdominal pain. Imaging and labs consistent with acute pancreatitis. Bowel rest over the first night of admission. Slowly advance diet with clears then full liquids. Patient tolerated advancement without significant difficulty. Pain improved. Repeat labs during admission showed gradual improvement and liver enzymes. Bilirubin 0.4, AST 28, ALT 21, alkaline phosphatase 86 on day of discharge. Ultrasound was obtained showing concern for sludge. MRCP of the liver obtained showing no obstruction in common bile duct. Patient to be referred to surgery as an outpatient in the coming weeks for discussion about cholecystectomy. Did not require pain medications for 24 hours prior to discharge. Hepatitis panel and HIV were negative and nonreactive respectively. White cell count remained normal. Stable to discharge home and advance to regular diet. Recommended low-fat diet. induced hypertension: Blood pressure remained normal during admission. 127/71 on day of discharge. Exam Data for Last 24 hours Vital signs and Labs for Last 24 Hours: Temp Pulse Resp BP Pulse Ox O2 Del Method 98.3 F 60 16 116/60 93 L Room Air 05/05/24 04:00 05/05/24 04:00 05/05/24 04:00 05/05/24 04:00 05/05/24 04:00 05/05/24 06:57 Laboratory Results - last 24 hr 05/02/24 21:07: Hepatitis A IgM Ab Negative, Hep Bs Antigen Negative, Hep B Core IgM Ab Negative, Hepatitis C Antibody Non reactive 05/04/24 11:40: WBC 8.0, RBC 4.29, Hgb 12.0 L, Hct 35.9 L, MCV 83.8, MCH 28.1, MCHC 33.6, RDW 14.1, Plt Count 214, MPV 8.9, Neut % (Auto) 62.9, Lymph % (Auto) 22.7, [place] % (Auto) 6.2, Eos % (Auto) 7.1, Baso % (Auto) 1.1, Neut # (Auto) 5.0, Lymph # (Auto) 1.8, [place] # (Auto) 0.5, Eos # (Auto) 0.6 H, Baso # (Auto) 0.1, Sodium 138, Potassium 3.6, Chloride 105, Carbon Dioxide 30, Anion Gap 6.6, BUN 6 L D, Creatinine 0.70, Estimated Creat Clear 221, Estimated GFR 105, Est GFR ( Amer) 127, Glucose 102 H, Calcium 9.3, Magnesium 1.9, Total Bilirubin 0.4, AST 41 H D, ALT 105 H D, Alkaline Phosphatase 73, Total Protein 6.8, Albumin 3.6, Globulin 3.2, Albumin/Globulin Ratio 1.1, Lipase 435 H 05/05/24 05:50: WBC 7.8, RBC 4.51, Hgb 12.5, Hct 37.3, MCV 82.6, MCH 27.8, MCHC 33.6, RDW 14.2, Plt Count 227, MPV 9.1, Neut % (Auto) 66.6, Lymph % (Auto) 22.6, [place] % (Auto) 4.3, Eos % (Auto) 5.7, Baso % (Auto) 0.8, Neut # (Auto) 5.2, Lymph # (Auto) 1.8, [place] # (Auto) 0.3, Eos # (Auto) 0.5 H, Baso # (Auto) 0.1, Sodium 139, Potassium 4.1, Chloride 107, Carbon Dioxide 26, Anion Gap 10.1, BUN 10 D, Creatinine 0.70, Estimated Creat Clear 226, Estimated GFR 105, Est GFR ( Amer) 127, Glucose 104 H, Calcium 9.5, Magnesium 1.9, Total Bilirubin 0.4, AST 28 D, ALT 81 H, Alkaline Phosphatase 86, Total Protein 7.4, Albumin 3.9, Globulin 3.5 H, Albumin/Globulin Ratio 1.1 I & O for Last 24 hours: Intake & Output 05/02/24 05/03/24 05/04/24 05/05/24 23:59 23:59 23:59 23:59 Intake Total 1936 / 2993 2035 Output Total 0 / 0 0 / 0 0 / 0 Balance 1936 / 2992035 0 / 0 Weight 111.266 kg 111.266 kg 111.266 kg 113.625 kg Constitutional Constitutional: no acute distress, obese and cooperative *Routine HEENT Exam Head: Present normocephalic Eye: Present EOMI and PERRL ENT: Present mucous membranes moist *Routine Neck Exam Neck: Present supple; Absent lymphadenopathy *Routine Respiratory Exam Respiratory: Present CTA bilaterally *Routine Cardiovascular Exam Cardiovascular: Present RRR *Routine Abdominal Exam Abdominal: Present soft, normoactive bowel sounds and tenderness (minimal epigastric) *Routine Rectal Exam Patient deferred: visual exam *Routine Exam Patient deferred: external exam *Routine Extremities Exam Extremities: Absent cyanosis, clubbing or edema *Routine Skin Exam Skin: Present warm; Absent rash *Routine Neurological Exam Neurological: Present alert, oriented X3 and moving all extremities; Absent altered mental status Results Data Completed and Pending Labs on day of discharge: Labs from last 24 hours 0705/04/24 05/02/24 05:50 11:40 21:07 WBC 7.8 8.0 RBC 4.51 4.29 Hgb 12.5 12.0 L Hct 37.3 35.9 L MCV 82.6 83.8 MCH 27.8 28.1 MCHC 33.6 33.6 RDW 14.2 14.1 Plt Count 227 214 MPV 9.1 8.9 Neut % (Auto) 66.6 62.9 Lymph % (Auto) 22.6 22.7 [place] % (Auto) 4.3 6.2 Eos % (Auto) 5.7 7.1 Baso % (Auto) 0.8 1.1 Neut # (Auto) 5.2 5.0 Lymph # (Auto) 1.8 1.8 [place] # (Auto) 0.3 0.5 Eos # (Auto) 0.5 H 0.6 H Baso # (Auto) 0.1 0.1 Sodium 139 138 Potassium 4.1 3.6 Chloride 107 105 Carbon Dioxide 26 30 Anion Gap 10.1 6.6 BUN 10 D 6 L D Creatinine 0.70 0.70 Estimated Creat Clear 226 221 Estimated GFR 105 105 Est GFR ( Amer) 127 127 Glucose 104 H 102 H Calcium 9.5 9.3 Magnesium 1.9 1.9 Total Bilirubin 0.4 0.4 AST 28 D 41 H D ALT 81 H 105 H D Alkaline Phosphatase 86 73 Total Protein 7.4 6.8 Albumin 3.9 3.6 Globulin 3.5 H 3.2 Albumin/Globulin Ratio 1.1 1.1 Lipase 435 H Hepatitis A IgM Ab Negative Hep Bs Antigen Negative Hep B Core IgM Ab Negative Hepatitis C Antibody Non reactive DS: Diagnosis Discharge Diagnosis (1) Acute pancreatitis: Status: Acute Code(s): K85.90 - Acute pancreatitis without necrosis or infection, unspecified Qualifiers: Acute pancreatitis complication: unspecified Pancreatitis type: other Qualified Code(s): K85.80 - Other acute pancreatitis without necrosis or infection (2) Transaminitis: Status: Acute Code(s): R74.01 - Elevation of levels of liver transaminase levels (3) Hypercholesteremia: Status: Acute Code(s): E78.00 - Pure hypercholesterolemia, unspecified (4) Fatty (change of) liver, not elsewhere classified: Status: Acute Code(s): K76.0 - Fatty (change of) liver, not elsewhere classified (5) HTN (hypertension): Status: Acute Code(s): I10 - Essential (primary) hypertension Qualifiers: Hypertension type: unspecified Qualified Code(s): I10 - Essential (primary) hypertension (6) Obesity: Status: Acute Code(s): E66.9 - Obesity, unspecified Qualifiers: Body mass index: BMI 37.0-37.9 Obesity classification: adult class 2 (BMI 35 - 39.9) Obesity type: due to excess calories Serious obesity comorbidity presence: unspecified whether serious comorbidity present Qualified Code(s): E66.09 - Other obesity due to excess calories; Z68.37 - Body mass index [BMI] 37.0-37.9, adult Meds Home Medications and Allergies Home Medications Medication Instructions Recorded Confirmed Type No Known Home Medications 05/03/24 05/03/24 History New Prescriptions to Start Prescriptions: Allergies Allergy/AdvReac Type Severity Reaction Status Date / Time Penicillins [PENICILLINS] Allergy Unknown I-HIVES Verified 11/23/17 15:39 Discharge Plan Disposition Patient Disposition: Home, Self-Care Condition: Fair Discharge Order Discharge Orders: Discharge Order (Routine); Ordered 05/05/24 Ordered By: Pedro Pablo Bennett Follow up Plan Follow up with: Andrew Chowdhury MD [Staff Physician] - 2 weeks (office to call with appointment) Freda Del Castillo [Primary Care Provider] - 05/10/24 2:30 pm Prescriptions/Medication Reconciliation: No Action No Known Home Medications Problem Reconciliation Problems Reviewed?: Yes Patient Discharge Instructions ACTIVITY: Continue current activity DIET: advance to your usual diet and low fat, low cholesterol Stand Alone Forms: [facility] Work Release Patient Instructions: DI for Pancreatitis Providers Primary Care Provider: Freda Del Castillo Admit Provider: Pedro Pablo Bennett Attending Provider: Pedro Pablo Bennett
[2024-05-05 08:00] VITALS: BP 127/71; PULSE 84; RESP 16; TEMP 36.9; O2SAT 100
--- NOTE | 2024-05-05 10:20 | PC.NURSE ---
Pt discharged and left floor ambulating accompanied by staff and family member.
--- NOTE | 2024-05-10 12:58 | CARE MANAGER ---
Attempted to contact patient related to hospital discharge x2. Left VM message. JULIO Cunningham
== END 2024-05-05 10:21 | disposition home or self-care (01) | DRG 440 ==
LOC: ER 22:30 → 2ND 22:52
PROVIDERS: Nurse Practitioner Family; Physician Assistant; Admitting Provider Internal Medicine Adolescent Medicine; Emergency Provider Student in an Organized Health Care Education/Training Program; PCP Nurse Practitioner Family; Visit Provider Internal Medicine Adolescent Medicine
DX: K85.80 Other acute pancreatitis without necrosis or infection (principal); R74.01 Elevation of levels of liver transaminase levels; E78.00 Pure hypercholesterolemia, unspecified; K76.0 Fatty (change of) liver, not elsewhere classified; I10 Essential (primary) hypertension; E66.09 Other obesity due to excess calories; Z68.38 Body mass index [BMI] 38.0-38.9, adult
CPT/HCPCS: 36415; 71045; 74177; 74181; 76376; 76705; 80053; 80061; 80074; 80307; 81001; 83605; 83690; 83735; 84484; 84703; 85007; 85025; 85027; 87086; 93005; 99285; J0131; J1885; J2270; J2405; J7120; Q9967